=== PATIENT | female | born 1980 | race Caucasian/White ===

== ENCOUNTER 2025-06-15 07:14 | Inpatient (IN) ==
--- NOTE | 2025-06-03 10:42 | Anesthesiology Consultation ---
Date of Service June 03, 2025 Assessment & Plan (1) Encounter for pre-operative examination: - Per assessment coordinator on 06/03/25: No known infectious disease contacts, current infectious disease symptoms in past 10 days or COVID positive test result in the past 30 days. 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 History Surgery Operation Date: 06/15/25 07:30 Proposed Procedures p Section (Delivery of Baby Through Abdominal Incision) - Mer Ruiz, DO Height/Weight Height: 5 ft 8 in Weight: 84.368 kg Allergies Allergy/AdvReac Type Severity Reaction Status Date / Time No Known Allergies Allergy Verified 06/03/25 08:17 Medications Home Medications Medication Instructions Recorded Confirmed Last Taken DHA+Complete 1 dose PO QAM 06/03/25 06/03/25 Unknown aspirin 81 mg capsule 81 mg PO QAM 06/03/25 06/03/25 Unknown cholecalciferol (vitamin D3) 25 25 mcg PO QAM 06/03/25 06/03/25 Unknown mcg (1,000 unit) tablet (Vitamin D3) Past Medical History Medical History (Updated 06/03/25 @ 10:41 by Uma Galvez PA-C) Abnormal Pap smear of cervix ASCUS Acute cystitis hx - no current issues Back pain resolved Factor 5 Leiden mutation, heterozygous never had an issues in the past - follows with [facility] Hematology resulting from in-vitro fertilization Past Family History Family History Grandmother (Maternal) Breast cancer Grandmother (Paternal) Breast cancer Aunt Breast cancer Mother Macular degeneration disease Stroke Other No family history of adverse response to anesthesia Denies family history of Ovarian cancer Colorectal cancer Past Surgical History Surgical History H/O myomectomy removal of 11-13 uterine fibroids S/P skin biopsy benign Status post hysteroscopy Social History Smoking Status: Never smoker Do You Dip or Chew Tobacco: No Hx Alcohol Use: No Alcohol type: beer Hx Substance Use: No substance use type: does not use Lab Results Anesthesia Preop Results Results Anesthesia Widget: Hgb 12.0 g/dl (12.0-16.0) 04/16/25 Hct 37.6 % (37.0-47.0) 04/16/25 Urine Color Yellow 04/16/25 Urine Appearance Clear (Clear) 04/16/25 Urine pH 8.0 (4.5-7.5) H 04/16/25 Urine Specific Hensley 1.008 (1.000-1.030) 04/16/25 Urine Protein Negative (Negative) 04/16/25 Urine Glucose (UA) Negative (Negative) 04/16/25 Urine Ketones Negative (Negative) 04/16/25 Urine Blood Negative (Negative) 04/16/25 Urine Nitrite Negative (Negative) 04/16/25 Urine Bilirubin Negative (Negative) 04/16/25 Urine Urobilinogen Negative (Negative) 04/16/25 Urine Leukocyte Esterase Negative (Negative) 04/16/25
[2025-06-15] MEDS: LACTATED RINGER'S 1,000 ML IV SCH ×2 (08:22→18:13)
[2025-06-15] MEDS: ACETAMINOPHEN 500 MG TAB PO SCH (08:23)
[2025-06-15] MEDS ORDERED: SODIUM CHLORIDE 0.9% 100 ML IV PRN (08:34)
[2025-06-15 08:51] LABS: Hematocrit (blood only) 36.6 % (37.0-47.0); Hemoglobin 12.4 g/dL (12.0-16.0); Mean Corpuscular Hemoglobin 30.2 pg (25.0-34.0); Mean Corpuscular Volume 89.1 fL (80.0-100.0); Platelet Count 203 K/uL (130-400); RDW Standard Deviation 43.0 fL (36.4-46.3); Red Blood Count 4.11 M/uL (4.20-5.40); White Blood Count 8.00 K/ul (4.8-10.8)
[2025-06-15] MEDS ORDERED: HYDROmorphone INJ 0.5 MG/0.5 ML SYR IV PRN (09:30)
[2025-06-15] MEDS ORDERED: PROMETHAZINE 6.25 MG/50.25 ML BAG IV PRN (09:30)
[2025-06-15] MEDS ORDERED: LACTATED RINGER'S 500 ML IV PRN (09:30)
[2025-06-15] MEDS ORDERED: DC INTRASPINAL MORPHINE SCH (09:30)
[2025-06-15] MEDS ORDERED: NALOXONE HCL 1 MG in SODIUM CHLORIDE 0.9% 1,000 ML IV PRN (09:30)
[2025-06-15] MEDS ORDERED: ACETAMINOPHEN 1,000 MG/100 ML VIAL IV PRN (09:30)
[2025-06-15] MEDS ORDERED: MoRPHine SULFATE 2 MG/ML CARP IV PRN (09:30)
[2025-06-15] MEDS ORDERED: NALOXONE HCL 0.08 MG in SYRINGE 1.8 ML IV PRN (09:30)
[2025-06-15] MEDS ORDERED: NALOXONE HCL 0.4 MG/1 ML VIAL/CARP IV PRN (09:30)
[2025-06-15] MEDS ORDERED: NALBUPHINE HCL INJ 10 MG/ML AMP IV PRN (09:30)
[2025-06-15] MEDS ORDERED: NO NARCOTICS OR SEDATIVES SCH (09:30)
[2025-06-15] MEDS ORDERED: diphenhydrAMINE 50 MG/ML VIAL IV PRN (09:30)
[2025-06-15] MEDS ORDERED: MEPERIDINE HCL 25 MG/ML CARP/VIAL IV PRN (09:30)
[2025-06-15] MEDS ORDERED: MoRPHine SULFATE PF 1 MG/ML 10 ML AMP/VIAL ONE (09:42)
[2025-06-15] MEDS ORDERED: OXYTOCIN 10 UNITS/ML VIAL ONE ×3 (09:44→11:15)
--- NOTE | 2025-06-15 10:24 | History & Physical Bridge Note ---
Date of Service June 15, 2025 History & Physical Bridge Note I have examined the patient, reviewed the History & Physical and in the interval since the performance of the History & Physical I have noted the following changes of clinical significance: no changes noted
--- NOTE | 2025-06-15 10:27 | History & Physical Report ---
Date of Service June 15, 2025 Assessment & Plan (1) Encounter for supervision of elderly primigravida: Plan: Will proceed to OR for section d/t h/o myomectomy. Reviewed informed consent in office. Discussed likelihood of scar tissue that may make more difficult, and presentation (transverse). Admission and Anticipated Discharge Date Admission Date: June 15, 2025 History of Present Illness Chief Complaint: scheduled Primary Care Provider: Hanh Herrera MD 45yo @ 37 09/19, here for scheduled . Recommendation for 37w delivery by d/t history of myomectomy. and Delivery Plans IVF/ICSI * Echo - Normal *Growth US Q4wks @28wks *Weekly NSTs @36wks *Weekly MERLIN's @36wks(ICSI only) Egg harvested from patient at age 43, did do PGD and was normal embryo AMA>40@del *Anatomy Scan @ 20wks * Echo scheduled as above. *Growth scan @32wks *Weekly NST's @36 wks *Twice weekly NST @38wks *Weekly MERLIN's @38wks *Deliver by 40 wks Heterozygous Factor V Leiden Mutation *No h/o VTE, so per ACOG no anticoag during Hx of Uterine Fibroids *Apr 2024, Magdalene @ [facility] [place] *LYDIA recommends consideration of delivery via *37w0d to 38w6d per ACOG w/ h/o myomectomy C/S SCHEDULED FOR 06/15/[address] SHRESTHA AND DR. LAYNE ASSIST Baby ASA *Age, Nulligravidity Allergies Allergy/AdvReac Type Severity Reaction Status Date / Time No Known Allergies Allergy Verified 06/08/25 08:34 Home Medications Medication Instructions Recorded Confirmed Type DHA+Complete 1 dose PO QAM 06/03/25 06/15/25 History aspirin 81 mg capsule 81 mg PO QAM 06/03/25 06/15/25 History cholecalciferol (vitamin D3) 25 25 mcg PO QAM 06/03/25 06/15/25 History mcg (1,000 unit) tablet (Vitamin D3) Patient History Medical History Abnormal Pap smear of cervix ASCUS Acute cystitis hx - no current issues Back pain resolved Factor 5 Leiden mutation, heterozygous never had an issues in the past - follows with [facility] Hematology resulting from in-vitro fertilization Surgical History H/O myomectomy removal of 11-13 uterine fibroids S/P skin biopsy benign Status post hysteroscopy Family History Grandmother (Maternal) Breast cancer Grandmother (Paternal) Breast cancer Aunt Breast cancer Mother Macular degeneration disease Stroke Other No family history of adverse response to anesthesia Denies family history of Ovarian cancer Colorectal cancer Social History Smoking Status: Never smoker Second Hand Exposure: No; Do You Dip or Chew Tobacco: No; Tobacco Cessation Education Requested by Patient: No Hx Alcohol Use: No Hx Substance Use: No Preferred Language: Icelandic Communication Ability: Effective B2B Sales Representative Required: No Beliefs That Will Affect Care: None marital status: marital status details: Chris Lugo (42) Current Living Situation: Spouse Current Living Situation Comment: JENNIFER- current occupational status: employed 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 How many Children do You have: 0 Other Information That Helps Us Care for You: No Feels Safe at Home: Yes Safety Concerns: Feels Safe At This Time Diet: regular Physical Activity Frequency: 3-4 Times per Week Assistive Devices: None Review of Systems All systems reviewed & are unremarkable except as noted in HPI & below Physical Exam Physical Exam: FHT Cat 1 Welty Q 1-2 Constitutional: WD/WN, vitals as above Respiratory: normal respiratory effort, lungs clear to auscultation no respiratory distress Cardiovascular: Rate/Rhythm: regular rate and regular rhythm Gastrointestinal (Abdomen): Inspection/Auscultation: abdomen normal to inspection Percussion/Palpation: abdomen soft; abdomen nontender Gravid. No s/s chorio or abruption. Skin: no rashes, warm and dry Psychiatric: A+Ox3, euthymic affect Results & Data Vital Signs (Past 12 Hours) Vital Signs Temp Pulse Resp BP 06/15/25 07:37 36.5 C 18 06/15/25 07:33 81 111/74 Code Status & VTE Plan VTE Prophylaxis Plan VTE Prophylaxis will be ordered: No Reason for no VTE drug order: Treatment not indicated Coding Level of Care Code None Diagnoses Encounter for supervision of elderly primigravida O09.519
[2025-06-15] MEDS: CITRIC ACID/SODIUM CITRATE 15 ML UDC PO SCH (10:30)
[2025-06-15] MEDS ORDERED: PHENYLEPHRINE HCL 25 MG/250 ML NSS IV ONE (11:15)
[2025-06-15 11:25] LABS: Base Excess Cord Arterial Bld -3.2 mEq/L (-9-1.8); Base Excess Cord Venous Blood -1.5 mEq/L (-7.7-1.9); CO2 Cord Arterial Blood 56 mmHg (39.1-73.5); Cord Venous Blood PO2 < 20 mmHg (14.1-43.3); HCO3 Cord Arterial Blood 25 mmol/L (19.7-28.5); O2 Saturation Cord Venous Bld < 60.0 % (<68); Oxygen Sat Cord Arterial Blood < 60.0 % (<60); PO2 Cord Arterial Blood < 20 mmHg (4.1-31.7); pH Cord Arterial Blood 7.26 (7.1-7.38)
--- NOTE | 2025-06-15 11:41 | Operative Report ---
Post Operative Report Pre & Post Diagnosis Operation Date: 06/15/25 09:00 Pre-Op Diagnosis: Primary c/s, History of Myomectomy Post-Op Diagnosis: Primary c/s, History of Myomectomy I identified the patient and participated in the time-out.: Yes Procedure Operation Date: 06/15/25 09:00 Actual Procedures p Primary Low Transverse Section delivery of live female child at 1056 - Mer Ruiz DO Surgeon Mer Ruiz, Immersion Metalcleaner Rob Ramirez MD Quantitative Blood Loss (QBL) 987 Findings Consistent with Post-Op Diagnosis Viable female , Apgars 8/9. Weight pending, please see nursery records. Normal appearing uterus, fallopian tubes. Ovaries with multiple small cysts, bilateral - larger left simple cyst. Specimens placenta, cord blood, cord gas Drains hall clear yellow Anesthesia Type Spinal Complications none Disposition Accompanied Patient To Recovery: Yes Disposition: L&D Indications 45yo @ 37 3/7, h/o myomectomy with recommendation for early delivery via c- section, AMA, IVF/ICSI , heterozygous Factor V Leiden Description of Procedure The patient was seen in her labor and delivery room, risks benefits and alternatives to surgery were reviewed. Informed consent obtained. Questions were answered. She was taken to the operating room, spinal anesthesia was administered. She was then prepared and draped in the usual sterile fashion in the supine position with a leftward tilt. Timeout was confirmed. A Pfannenstiel skin incision was made with a scalpel, and carried through to the underlying layer of fascia. Fascia was nicked at midline, and this incision was extended bilaterally. The superior aspect of the fascial incision was grasped with Edward clamps x2, elevated off the underlying rectus abdominis muscles, and dissected sharply and bluntly. In similar fashion, the inferior aspect of the fascial incision was dissected. The rectus abdominis muscles were , and the peritoneum was entered bluntly digitally. This was extended bilaterally. Using a new scalpel, a low transverse uterine incision was created. Clear amniotic fluid noted. The was delivered from a breech presentation. The bilateral feet delivered, followed by buttocks, baby was rotated to prone position for delivery of arms - swept medially, no nuchal, then head delivered. The cord was doubly clamped and cut, and the infant was handed off to the waiting cook helper pastry. A segment was retained for cord gases. Cord blood was o btained. The placenta was delivered intact via manual extraction. The uterus was exteriorized, and cleared of all clots and debris. The hysterotomy incision was reapproximated using 0 Vicryl in a running locked stitch. A second layer of the same suture was used to imbricate the incision. Posterior uterus was evaluated and normal. The uterus was returned to the abdomen, and gutters were cleared of clots and debris. Excellent hemostasis was observed. The fascial incision was reapproximated using 0 Vicryl in a running stitch. The subcutaneous tissue was irrigated, and reapproximated using 2-0 plain gut in a running stitch. The skin was reapproximated using 4-0 Vicryl in a running subcuticular stitch. Steri-Strips and a bandage were applied. The patient tolerated the procedure well, and will be taken to the recovery area in stable and good condition. I attest to the content of the Intraoperative Record and any orders documented therein. Any exceptions are noted below. OB Procedure Charges 10852
[2025-06-15] MEDS: KETOROLAC 30 MG/ML VIAL IV PRN (12:01)
[2025-06-15] MEDS ORDERED: HYDROCORTISONE ACETATE 25 MG SUPP PR PRN (12:33)
[2025-06-15] MEDS ORDERED: CALCIUM CARBONATE 500 MG CHEWABLE TAB PO PRN (12:33)
[2025-06-15] MEDS ORDERED: BENZOCAINE 20% SPRY 85 APPLN/85 GM CAN EXT PRN (12:33)
[2025-06-15] MEDS ORDERED: SENNA 8.6 MG TAB PO PRN (12:33)
--- NOTE | 2025-06-15 14:36 | Anesthesiology Progress Note ---
Date of Service June 15, 2025 Anesthesia Post Procedure Vital Signs Vital Signs: Temp Pulse Resp BP Pulse Ox O2 Del Method 06/15/25 13:45 54 L 97 06/15/25 13:40 36.4 C L 16 06/15/25 13:40 56 L 98 06/15/25 13:38 56 L 97/58 L 06/15/25 13:35 54 L 98 06/15/25 13:30 77 98 06/15/25 13:28 105/60 06/15/25 13:25 55 L 98 06/15/25 13:20 52 L 97 06/15/25 13:18 54 L 106/60 06/15/25 13:15 60 99 06/15/25 13:10 18 06/15/25 13:10 102 H 99 06/15/25 13:05 62 99 06/15/25 13:00 64 98 06/15/25 12:58 72 102/60 06/15/25 12:55 55 L 98 06/15/25 12:50 86 98 06/15/25 12:48 51 L 109/60 06/15/25 12:45 58 L 98 06/15/25 12:40 16 06/15/25 12:40 18 06/15/25 12:40 57 L 98 06/15/25 12:39 137 H 108/49 L 06/15/25 12:35 65 98 06/15/25 12:30 18 06/15/25 12:30 59 L 98 06/15/25 12:28 57 L 104/65 06/15/25 12:25 57 L 98 06/15/25 12:20 16 06/15/25 12:20 59 L 99 06/15/25 12:18 56 L 115/68 06/15/25 12:15 67 98 06/15/25 12:10 16 06/15/25 12:10 66 98 06/15/25 12:08 66 103/65 06/15/25 12:05 72 98 06/15/25 12:00 18 06/15/25 12:00 55 L 98 06/15/25 11:58 57 L 98/57 L 06/15/25 11:55 57 L 100 06/15/25 11:50 18 06/15/25 11:50 53 L 99 06/15/25 11:48 55 L 101/55 L 06/15/25 11:45 61 99 06/15/25 11:43 54 L 104/56 L 06/15/25 11:40 36.5 C 20 Room Air 06/15/25 11:38 55 L 105/59 L 06/15/25 07:37 36.5 C 18 06/15/25 07:33 81 111/74 Pain Intensity Abdomen: Pain Intensity: 4 Transfer of Care Handoff Completed per policy Notes Mental Status: alert / awake / arousable and participated in evaluation Nausea / Vomiting: adequately controlled Pain: adequately controlled Airway Patency, RR, SpO2: stable & adequate BP & HR: stable & adequate Hydration State: stable & adequate Neuraxial Anesthesia: was administered and sensory block is resolving Anesthetic Complications: no major complications apparent and Pt Satisfied with anesthetic care
[2025-06-15] MEDS: ACETAMINOPHEN 325 MG TAB PO SCH (17:53)
[2025-06-15] MEDS: SIMETHICONE 80 MG CHEW PO SCH (17:53)
[2025-06-15] MEDS: KETOROLAC 30 MG/ML VIAL IV SCH (17:53)
[2025-06-15] MEDS: ONDANSETRON INJ 2 MG/ML 2 ML VIAL IV PRN (18:12)
[2025-06-15] MEDS: OXYTOCIN 20 UNITS/LR 1,002 ML IV SCH (19:14)
[2025-06-15] MEDS: DOCUSATE SODIUM 100 MG CAP PO SCH (21:10)
[2025-06-16] MEDS ORDERED: PROMETHAZINE 12.5 MG/50.5 ML BAG IV PRN (03:30)
[2025-06-16] MEDS ORDERED: ONDANSETRON INJ 2 MG/ML 2 ML VIAL IV PRN (03:30)
[2025-06-16] MEDS ORDERED: HYDROmorphone INJ 0.5 MG/0.5 ML SYR IV PRN (03:30)
[2025-06-16] MEDS ORDERED: diphenhydrAMINE 50 MG/ML VIAL IV PRN (03:30)
[2025-06-16] MEDS ORDERED: diphenhydrAMINE Capsule 25 MG CAP PO PRN (03:30)
--- NOTE | 2025-06-16 06:27 | Obstetrical Progress Note ---
Date of Service June 16, 2025 Assessment & Plan (1) examination following delivery: (2) Factor V Leiden mutation complicating : (3) Encounter for supervision of elderly primigravida: Plan 45 y/o ppd #1 s/p delivery. complicated by hx of myomectomy and Factor V Leiden mutation Feels well today. Vital signs stable Continue post- care Encourage ambulation and Pain controlled with ibuprofen Hgb stable Anticipate home discharge tomorrow, follow up with Dr. Ruiz in 6 weeks. Admission and Anticipated Discharge Date Admission Date: June 15, 2025 Supervising Physician Co-Signing Physician Notes Resident Physician Supervision Note: I interviewed and examined the patient. Discussed with Dr. Desouza and agree with findings and plan as documented in the note. Any exceptions or clarifications are listed here: Doing well this am. n/v last night resolved. Good fluid intake now. Voided. Has ambulated. Plan to start Lovenox prophylactically now. Documented By: Dorinda Ramirez MD, FACOG Subjective 45 y/o ppd #1 s/p delivery. complicated by hx of myomectomy and Factor V Leiden mutation some episodes of nausea/vomiting last evening - could not keep down both liquids and solids ; given zofran which did help her symptoms. states she did not eat dinner, but able to tolerate light snacks throughout the rest of the evening/night Ambulation: ambulating normally Voiding: no voiding problems Passing Gas:: Yes Diet Tolerance:: regular diet Lochia:: Small Feeding Type:: bottle feeding Current Pain Level: minimal, well-controlled with ibuprofen Resting comfortably this AM in NAD. Denies CEJA, CP, SOB, LE pain/swelling. Review of Systems Review of Systems: as above Physical Exam Physical Exam: General: patient resting comfortably, NAD, non-toxic in appearance, A&Ox4, answers questions appropriately. Skin: warm, dry, intact HEENT: NC/AT, anicteric sclera, conjunctiva without injection, moist mucus memb ranes. Heart: +S1/S2, regular, no m/r/g Lungs: equal air entry bilaterally, no rales/rhonchi/wheezes Abd: +BS, soft, NT/ND, uterine fundus firm at umbilicus, caesarean incision C/D/I. Ext: warm, no clubbing/cyanosis or edema, Jayleen's neg. Neuro: no focal neurologic deficits, moving all extremities. Results & Data Vital Signs (Past 12 Hours) Vital Signs Temp Pulse Pulse Resp BP Pulse Ox O2 Del Method 06/16/25 03:49 36.6 C 61 18 109/65 96 Room Air 06/16/25 02:58 18 98 06/16/25 01:10 16 96 06/16/25 00:20 36.7 C 64 16 113/66 98 Room Air 06/15/25 23:05 18 98 06/15/25 22:06 18 96 06/15/25 21:05 16 96 06/15/25 20:26 16 98 06/15/25 19:25 36.4 C L 54 L 18 107/59 L 100 Room Air
[2025-06-16 06:31] LABS: Hematocrit (blood only) 27.6 % (37.0-47.0); Hemoglobin 9.5 g/dL (12.0-16.0); Immature Granulocytes # (auto) 0.08 K/uL (0.01-0.20); Immature Granulocytes % (auto) 0.6 %; Mean Corpuscular Hemoglobin 31.3 pg (25.0-34.0); Mean Corpuscular Volume 90.8 fL (80.0-100.0); Platelet Count 170 K/uL (130-400); RDW Standard Deviation 43.5 fL (36.4-46.3); Red Blood Count 3.04 M/uL (4.20-5.40); White Blood Count 12.34 K/ul (4.8-10.8)
[2025-06-16] MEDS: MoRPHine SULFATE PF 1 MG/ML 10 ML AMP/VIAL INT SPINAL ONE (07:10)
[2025-06-16] MEDS: SODIUM CHLORIDE 0.9% 1,000 ML IV SCH (07:10)
[2025-06-16] MEDS: DIPHTHER/TETAN/PERTUS Vaccine (Tdap, Adol/Adult) 0.5mL IM ONE (07:11)
[2025-06-16] MEDS: FERROUS SULFATE 325 MG TAB PO SCH (08:37)
[2025-06-16] MEDS: PRENATAL VITAMIN 1 TAB PO SCH (08:37)
[2025-06-16] MEDS: ENOXAPARIN INJ 40 MG/0.4 ML SYR SQ SCH (10:54)
[2025-06-16] MEDS ORDERED: KETOROLAC 30 MG/ML VIAL IV PRN (12:00)
[2025-06-16] MEDS: IBUPROFEN 600 MG TAB PO SCH (12:08)
--- NOTE | 2025-06-17 06:04 | Obstetrical Progress Note ---
Date of Service June 17, 2025 Assessment & Plan (1) examination following delivery: (2) Factor V Leiden mutation complicating : (3) Encounter for supervision of elderly primigravida: Plan 45 y/o ppd #1 s/p delivery. complicated by hx of myomectomy and Factor V Leiden mutation Feels well today. Vital signs stable Continue post- care Encourage ambulation and Pain controlled with ibuprofen, however did need dose of oxycodone last night continue lovenox 40mg subq qAm - will need to continue for 6 weeks after discharge. Hgb stable Anticipate home discharge tomorrow, follow up with Dr. Ruiz in 6 weeks. Admission and Anticipated Discharge Date Admission Date: June 15, 2025 Supervising Physician Co-Signing Physician Notes Resident Physician Supervision Note: I was present with Dr. Desouza during the history and exam. I discussed the case with the resident and agree with the findings and plan as documented in the note. Any exceptions or clarifications are listed here: pt doing well, had pain issues late yesterday, thought maybe she did too much but took pain meds and improved and better this am. no issues with eating or voiding, no bleeding issues. did start the lovenox, aware of 6wk course but will need script sent. abd soft ff 2 down nt, incision c/d/i with steris, ext nt calves. pod #2 s/p c/s doing well, routine care, lovenox planned. hgb not drawn yet. breast, rhpos, ri. Documented By: Estephanie Augustin MD, FACOG Subjective 45 y/o pod #2 s/p delivery. complicated by hx of myomectomy and Factor V Leiden mutation doing well this morning, no issues overnight. Did have more bothersome pain last night, needed a dose of oxycodone to help with pain which did provide relief. Pain better controlled this morning, only needed ibuprofen. Ambulation: ambulating normally Voiding: no voiding problems Passing Gas:: Yes Diet Tolerance:: regular diet Lochia:: Small Feeding Type:: breast feeding Current Pain Level: 2/10. Resting comfortably this AM in NAD. Denies CEJA, CP, SOB, LE pain/swelling. Review of Systems Review of Systems: as above Physical Exam Physical Exam: General: patient resting comfortably, NAD, non-toxic in appearance, A&Ox4, answers questions appropriately. Skin: warm, dry, intact HEENT: NC/AT, anicteric sclera, conjunctiva without injection, moist mucus membranes. Heart: +S1/S2, regular, no m/r/g Lungs: equal air entry bilaterally, no rales/rhonchi/wheezes Abd: +BS, soft, NT/ND, uterine fundus firm at umbilicus, caesarean incision C/D/I. Ext: warm, no clubbing/cyanosis or edema, Jayleen's neg. Neuro: no focal neurologic deficits, moving all extremities. Results & Data Vital Signs (Past 12 Hours) Vital Signs Temp Pulse Resp BP Pulse Ox O2 Del Method 06/17/25 00:30 36.6 C 67 16 119/62 98 Room Air 06/16/25 20:15 36.6 C 65 16 127/67 98 Room Air
[2025-06-17 09:18] LABS: Hematocrit (blood only) 29.9 % (37.0-47.0); Hemoglobin 10.0 g/dL (12.0-16.0)
[2025-06-17] MEDS: IBUPROFEN 600 MG TAB PO PRN (12:45)
[2025-06-17] MEDS: ACETAMINOPHEN 325 MG TAB PO PRN (18:28)
[2025-06-17] MEDS: MAGNESIUM HYDROXIDE SUSP 30 ML UDC PO PRN (21:56)
[2025-06-18 00:10] VITALS: RESP 18; TEMP 98.1
--- NOTE | 2025-06-18 06:28 | Obstetrical Progress Note ---
Date of Service June 18, 2025 Assessment & Plan (1) examination following delivery: (2) Factor V Leiden mutation complicating : (3) Encounter for supervision of elderly primigravida: Plan 45 y/o pod #3 s/p delivery. complicated by hx of myomectomy and Factor V Leiden mutation Feels well today. Vital signs stable Continue post- care Encourage ambulation and Pain controlled with ibuprofen/tylenol continue lovenox 40mg subq qAm - will need to continue for 6 weeks after discharge. Hgb stable Anticipate home discharge today, follow up with Dr. Ruiz in 6 weeks. Admission and Anticipated Discharge Date Admission Date: June 15, 2025 Supervising Physician Co-Signing Physician Notes Resident Physician Supervision Note: I interviewed and examined the patient. Discussed with Dr. Desouza and agree with findings and plan as documented in the note. Any exceptions or clarifications are listed here: POD#3 doing well. DC home today. Reviewed PP instructions. Rx Lovenox 40mg SQ x 12w PP (per dye range operator cloth's recommendation), Rx oxycodone #10 tablets. Documented By: Mer Ruiz, DO Subjective 45 y/o pod #3 s/p delivery. complicated by hx of myomectomy and Factor V Leiden mutation doing well this morning, no issues overnight. pain is more controlled than yesterday - taking scheduled ibuprofen/tylenol. Ambulation: ambulating normally Voiding: no voiding problems Passing Gas:: Yes Diet Tolerance:: regular diet Lochia:: Small Feeding Type:: breast feeding Current Pain Level: minimal Resting comfortably this AM in NAD. Denies CEJA, CP, SOB, LE pain/swelling. Review of Systems Review of Systems: as above Physical Exam Physical Exam: General: patient resting comfortably, NAD, non-toxic in appearance, A&Ox4, answers questions appropriately. Skin: warm, dry, intact HEENT: NC/AT, anicteric sclera, conjunctiva without injection, moist mucus membranes. Heart: +S1/S2, regular, no m/r/g Lungs: equal air entry bilaterally, no rales/rhonchi/wheezes Abd: +BS, soft, NT/ND, uterine fundus firm at umbilicus, caesarean incision C/D/I. Ext: warm, no clubbing/cyanosis or edema Neuro: no focal neurologic deficits, moving all extremities. Results & Data Vital Signs (Past 12 Hours) Vital Signs Temp Pulse Resp BP Pulse Ox O2 Del Method 06/18/25 00:00 36.7 C 62 18 117/71 96 Room Air 06/17/25 19:20 36.8 C 66 16 124/72 98 Room Air
[2025-06-18 10:56] VITALS: BP 118/72; PULSE 72; O2SAT 98
== END 2025-06-18 16:20 | disposition home or self-care (01) | DRG 787 ==
LOC: 4S1 07:14 → EDSTATUS 07:30 → 4E2 14:27